=== PATIENT | female | born 1955 | race Caucasian/White ===

== ENCOUNTER 2018-06-16 07:46 | Outpatient (CLI) | payer OTHER ==
--- NOTE | 2018-06-28 12:22 | Mammography Report ---
Reason: SCREENING MAMMO Procedure Date: 06/16/2018 Accession Number: [id number] / [id number] Procedure: EDWARD - Screening Mammo w/Slonae CPT Code: FULL RESULT: EXAM: Screening Mammo w/Sloane DATE: 06/16/2018 8:16 AM CLINICAL HISTORY: Routine screening TECHNIQUE: Bilateral CC and MLO views were obtained. COMPARISON: None available FINDINGS: There are scattered fibroglandular densities. 3 nodules are identified: 1. Left breast 5 mm 3:00 position 4 to 5 cm from the nipple, sloane MLO 9, CC 8. 2. Left breast 1.5 cm 9:00 position 2 to 3 cm from the nipple, sloane MLO 37, CC 40 3. Right breast 7 mm 6:00 position 2 cm from the nipple, sloane MLO 13, CC 15. No other suspicious masses, clustered microcalcifications, or regions of architectural distortion are identified. IMPRESSION: 3 nodules are identified, 2 in the left breast and one in the right breast. Further evaluation by ultrasound is suggested. RECOMMENDATION: Bilateral breast ultrasound. BIRADS CATEGORY 0: Needs additional evaluation COMMENT: If prior films become available for comparison the need for additional imaging may be obviated. STANDARD QUALIFYING STATEMENTS: 1. This examination was not reviewed with the aid of Computer-Aided Detection (CAD). 2. A negative or benign imaging report should not delay biopsy if clinically suspicious findings are present. Consider surgical consultation if warrented. More than 5% of cancers are not identified by imaging. 3. Dense breasts may obscure an underlying neoplasm. 4. This examination was reviewed with the aid of 3D breast imaging (tomosynthesis).
== END 2018-06-16 07:47 | disposition home or self-care (01) ==
LOC: DI 07:46
DX: Z12.31 Encounter for screening mammogram for malignant neoplasm of breast (principal); R92.8 Other abnormal and inconclusive findings on diagnostic imaging of breast
CPT/HCPCS: 77063; 77067

== ENCOUNTER 2018-07-12 09:56 | Outpatient (CLI) | payer OTHER ==
--- NOTE | 2018-07-12 16:30 | Ultrasound Report ---
Reason: ABN MAMMO - BILAT SPEC VIEW US Procedure Date: 07/12/2018 Accession Number: [id number] / [id number] Procedure: US - Breast Unilateral Limited CPT Code: FULL RESULT: EXAM: Breast Unilateral Limited, Breast Unilateral Limited DATE: 07/12/2018 11:25 AM CLINICAL HISTORY: ABN MAMMO - BILAT SPEC VIEW US COMPARISON: None. TECHNIQUE: Targeted ultrasound was performed of the right breast in the area of clinical concern at 6-7 o'clock o'clock and 2 cm distance from the nipple. Targeted ultrasound was performed of the left breast in two areas of concern at 3:00 approximately 4-5 cm from the nipple and at 9:00 2-3 cm from the nipple. Color Doppler was employed as appropriate. FINDINGS: A well-circumscribed wider than tall hypoechoic nodule is identified in the right breast at 6:00 2 cm from the nipple, probably benign finding. In the left breast at 10:00 3 cm from the nipple is a angulated appearing wider than tall mass which measures 0.9 x 0.4 cm and demonstrates posterior shadowing, probably benign. The left breast at 3:00, 4 cm from the nipple is a 2.5 mm simple cyst with increased through transmission, benign finding. No suspicious findings are made in the 3:00 region of the left breast. IMPRESSION: Probable benign findings in the right and left breast. RECOMMENDATION: Recommend diagnostic right breast ultrasound of the 6:00 finding 2 cm from the nipple in 6 months. Recommend diagnostic left breast ultrasound of the 10:00 finding 3 cm from the nipple in 2 months. BIRADS CATEGORY 3 RADIA
== END 2018-07-12 09:57 | disposition home or self-care (01) ==
LOC: DI 09:56
PROVIDERS: ATTEND Nurse Practitioner
DX: R92.8 Other abnormal and inconclusive findings on diagnostic imaging of breast (principal); N60.02 Solitary cyst of left breast
CPT/HCPCS: 76642

== ENCOUNTER 2018-11-05 13:11 | Outpatient (CLI) | payer OTHER ==
--- NOTE | 2018-11-05 15:57 | Ultrasound Report ---
Reason: ABNORMAL MAMMOGRAM Procedure Date: 11/05/2018 Accession Number: [id number] / [id number] Procedure: US - Breast Unilateral Limited CPT Code: FULL RESULT: EXAM: Breast Unilateral Limited DATE: 11/05/2018 2:13 PM CLINICAL HISTORY: Diagnostic ultrasound as follow-up of prior abnormalities on mammogram and ultrasound. COMPARISON: None. TECHNIQUE: Targeted ultrasound was performed of the left breast in the area of clinical concern at 10 o'clock and 3 distance from the nipple. Color Doppler was employed as appropriate. FINDINGS: The previously identified finding is redemonstrated on different ultrasound equipment. Today's appearance favors normal breast parenchyma, probably benign. IMPRESSION: Probable benign findings RECOMMENDATION: Recommend diagnostic left breast ultrasound in 12 months to establish two-year stability. Additionally, previously recommended right breast diagnostic ultrasound at the 6 month interval. BIRADS CATEGORY 3 RADIA
== END 2018-11-05 13:12 | disposition home or self-care (01) ==
LOC: DI 13:11
PROVIDERS: ATTEND Nurse Practitioner
DX: R92.8 Other abnormal and inconclusive findings on diagnostic imaging of breast (principal)
CPT/HCPCS: 76642

== ENCOUNTER 2019-01-24 10:30 | Outpatient (CLI) | payer OTHER ==
--- NOTE | 2019-01-24 13:00 | Ultrasound Report ---
Reason: ABNORMAL MAMMOGRAM, RIGHT BREAST 6 MO FU Procedure Date: 01/24/2019 Accession Number: [id number] / [id number] Procedure: US - Breast Unilateral Limited CPT Code: FULL RESULT: EXAM: Breast Unilateral Limited Ultrasound DATE: 01/24/2019 11:42 AM CLINICAL HISTORY: ABNORMAL MAMMOGRAM, RIGHT BREAST 6 MO FU ultrasound COMPARISON: Right breast ultrasound 07/12/2018, mammogram 06/16/2018 TECHNIQUE: Targeted ultrasound was performed of the right breast in the area of clinical concern at 6 o'clock and 2 cm distance from the nipple. Color Doppler was employed as appropriate. FINDINGS: The 4 x 2 x 3 mm hypoechoic nodule seen on the 07/12/2018 ultrasound in the 6:00 position right breast 2 cm from the nipple is not appreciated on the current ultrasound. A few retroareolar prominent ducts are noted. No cystic or solid mass is seen. IMPRESSION: Benign findings RECOMMENDATION: Routine bilateral screening mammography in 6 months at the time of left breast ultrasound per prior recommendation. BIRADS CATEGORY 2: Benign findings RADIA
== END 2019-01-24 10:31 | disposition home or self-care (01) ==
LOC: DI 10:30
PROVIDERS: ATTEND Nurse Practitioner
DX: R92.8 Other abnormal and inconclusive findings on diagnostic imaging of breast (principal)
CPT/HCPCS: 76642

== ENCOUNTER 2019-05-17 08:59 | Outpatient (CLI) | payer OTHER ==
[2019-05-17 11:46] LABS: BASOPHILS # (AUTO) 0.1 10^3/uL (0.0-0.1); BASOPHILS % (AUTO) 0.6 %; EOSINOPHILS # (AUTO) 0.1 10^3/uL (0.0-0.7); EOSINOPHILS % (AUTO) 0.5 %; HGB - HEMOGLOBIN 13.4 g/dL (12.0-16.0); LYMPHOCYTES # (AUTO) 4.6 10^3/uL (1.5-3.5); LYMPHOCYTES % (AUTO) 39.5 %; MEAN CORPUSCULAR HEMOGLOBIN 30.7 pg (27.0-31.0); MEAN CORPUSCULAR HGB CONC 32.8 g/dL (32.0-36.0); MEAN CORPUSCULAR VOLUME 93.6 fL (81.0-99.0); MEAN PLATELET VOLUME 9.9 fL (7.9-10.8); MONOCYTES # (AUTO) 0.8 10^3/uL (0.0-1.0); MONOCYTES % (AUTO) 6.6 %; NEUTROPHILS # (AUTO) 6.1 10^3/uL (1.5-6.6); NEUTROPHILS % (AUTO) 52.4 %; PLT - PLATELET COUNT 411 10^3/uL (130-450); RED BLOOD COUNT 4.36 10^6/uL (4.20-5.40); RED CELL DISTRIBUTION WIDTH 14.4 % (12.0-15.0); WHITE BLOOD COUNT 11.7 x10^3/uL (4.8-10.8)
[2019-05-17 12:02] LABS: ALBUMIN 3.6 g/dL (3.2-5.5); ALBUMIN/GLOBULIN RATIO 1.1 (1.0-2.2); ALKALINE PHOSPHATASE 70 IU/L (42-121); ALT ALANINE AMINOTRANSFERASE 24 IU/L (10-60); AST ASPARTATE AMINOTRANSFERASE 20 IU/L (10-42); BILIRUBIN,TOTAL 0.7 mg/dL (0.2-1.0); BUN - BLOOD UREA NITROGEN 17 mg/dL (6-20); CALCIUM 9.1 mg/dL (8.5-10.3); CARBON DIOXIDE - CO2 30 mmol/L (21-32); CHLORIDE 101 mmol/L (101-111); CHOL/HDL RATIO 2.7 (<4.4); CHOLESTEROL 187 mg/dL; CREATININE 0.8 mg/dL (0.4-1.0); GFR - MDRD 72 (>89); GLUCOSE 86 mg/dL (70-100); HDL CHOLESTEROL 70 mg/dL; LDL CHOLESTEROL,CALCULATED 100 mg/dL; LDL/HDL RATIO 1.4 (<4.4); SODIUM 138 mmol/L (135-145); TOTAL PROTEIN 6.8 g/dL (6.7-8.2); VLDL CHOLESTEROL 17 mg/dL
== END 2019-05-17 23:59 | disposition home or self-care (01) ==
LOC: LAB.WCP 08:59
PROVIDERS: ATTEND Nurse Practitioner
DX: Z00.00 Encounter for general adult medical examination without abnormal findings (principal); I10 Essential (primary) hypertension; J45.909 Unspecified asthma, uncomplicated
CPT/HCPCS: 36415; 80053; 80061; 83721; 85025

== ENCOUNTER 2019-08-08 09:17 | Outpatient (CLI) | payer BC ==
--- NOTE | 2019-08-09 16:57 | Mammography Report ---
Reason: ROUTINE MAMMO Procedure Date: 08/08/2019 Accession Number: [id number] / [id number] Procedure: EDWARD - Screening Mammo w/Erick CPT Code: Final Report FULL RESULT: EXAM: Screening Mammo w/Erick DATE: 08/08/2019 9:43 AM CLINICAL HISTORY: Sister With breast cancer. Routine screening. TECHNIQUE: (B) - Bilateral CC and MLO views were obtained. COMPARISON: 06/16/2018 mammogram, bilateral breast ultrasound 07/12/2018, left breast ultrasound 11/05/2018 and right breast ultrasound 01/24/2019 PARENCHYMAL PATTERN: (A) - The breasts demonstrate scattered fibroglandular densities bilaterally. FINDINGS: No significant new findings. There are no suspicious calcifications, skin thickening, or areas of distortion. No masses on the right. On the left a nodular density in the 10:00 position persists, similar to the prior mammogram. Suggest follow-up left breast ultrasound per prior recommendation. IMPRESSION: Incomplete examination. BI-RADS category 0. Needs left breast ultrasound. Negative right breast. RECOMMENDATION: (ADDUS) - Targeted ultrasound recommended. Left breast BI-RADS CATEGORY: (0) - Incomplete Examination - need additional evaluation. STANDARD QUALIFYING STATEMENTS: 1. This examination was not reviewed with the aid of Computer-Aided Detection (CAD). 2. A negative or benign imaging report should not preclude biopsy if clinically suspicious findings are present. 3. Dense breasts may obscure an underlying neoplasm. 4. This examination was reviewed with the aid of 3D breast imaging (tomosynthesis).
== END 2019-08-08 09:18 | disposition home or self-care (01) ==
LOC: DI 09:17
PROVIDERS: ATTEND Nurse Practitioner
DX: Z12.31 Encounter for screening mammogram for malignant neoplasm of breast (principal); R92.8 Other abnormal and inconclusive findings on diagnostic imaging of breast; Z80.3 Family history of malignant neoplasm of breast
CPT/HCPCS: 77063; 77067

== ENCOUNTER 2019-08-10 09:31 | Outpatient (CLI) | payer BC ==
--- NOTE | 2019-08-10 12:18 | Ultrasound Report ---
Reason: ABD US - 6 MO FOLLOW UP Procedure Date: 08/10/2019 Accession Number: [id number] / [id number] Procedure: US - Breast Unilateral Limited CPT Code: Final Report FULL RESULT: EXAM: Breast Unilateral Limited LEFT DATE: 08/10/2019 11:21 AM CLINICAL HISTORY: Follow-up abnormal ultrasound and mammogram. Strong family history of breast cancer. COMPARISON: Breast ultrasound left 07/12/2018, 11/05/2018, mammography 08/08/2019 TECHNIQUE: Targeted ultrasound was performed of the left breast in the area of clinical concern at 10 o'clock and 3 cm distance from the nipple. Color Doppler was employed as appropriate. FINDINGS: Corresponding to the mammographic finding and prior ultrasounds is an 8 x 5 x 8 mm triangular-shaped somewhat ill-defined area with echogenicity similar to adjacent breast tissue. Vascular flow is now demonstrated within this area, new in contrast to prior studies. No other cystic or solid mass or fluid collection is seen. I discussed the findings on mammography and ultrasound with the patient. Given her strong family history of breast cancer and her difficulty in scheduling appointments we agreed that ultrasound-guided core biopsy at this time was preferable to six-month follow-up ultrasound. IMPRESSION: Suspicious abnormality left breast. RECOMMENDATION: Ultrasound-guided core left breast biopsy. BIRADS CATEGORY 4 Suspicious RADIA
== END 2019-08-10 09:32 | disposition home or self-care (01) ==
LOC: DI 09:31
PROVIDERS: ATTEND Nurse Practitioner
DX: R92.8 Other abnormal and inconclusive findings on diagnostic imaging of breast (principal); Z80.3 Family history of malignant neoplasm of breast
CPT/HCPCS: 76642

== ENCOUNTER 2019-11-09 09:21 | Outpatient (CLI) | payer MEDICARE, OTHER ==
[2019-11-09] MEDS ORDERED: BUFFERED LIDOCAINE 10 ML SYRINGE ONE (09:40)
[2019-11-09] MEDS ORDERED: BUFFERED LIDOCAINE 10 ML SYRINGE IU ONE (15:30)
--- NOTE | 2019-11-10 11:06 | Mammography Report ---
UNILATERAL LEFT DIGITAL DIAGNOSTIC MAMMOGRAM 3D/2D: 11/09/2019 CLINICAL: Post left breast ultrasound biopsy, clip placement imaging. Comparison is made to exams dated: 08/08/2019 mammogram and 06/16/2018 mammogram - [facility]. The tissue of left breast is predominantly fatty, and there is a small post-biopsy marker at the 10:00 position left breast. IMPRESSION: POST PROCEDURE MAMMOGRAM FOR MARKER PLACEMENT Post-biopsy marker in expected position after US guided biopsy of the left breast small 10:00 positio n soft tissue lesion. Results pending. NOTE: For mammograms, a report in lay terms will be sent to the patient. Approximately 15% of breast malignancies will not be visualized mammographically. In the management of a palpable breast mass, a negative mammogram must not discourage biopsy of a clinically suspicious lesion. Electronically Signed By: Wan Rivas M.D. sdh/:11/09/2019 16:22:56 ACR BI-RADS Category Post-procedure mammogram for marker placement PARENCHYMAL PATTERN: (F) - The breast(s) demonstrate(s) diffuse fatty replacement. BI-RADS CATEGORY: () - Unspecified - other recall n/a LATERALITY: (B)
--- NOTE | 2019-11-15 19:11 | Ultrasound Report ---
ULTRASOUND GUIDED BIOPSY LEFT BREAST WITH MARKING DEVICE INSERTED AND POST DIGITAL MAMMOGRAPHIC AND U LTRASOUND IMAGIN11/09/2019 CLINICAL: Patient returns for additional imaging over a suspected mass in the left breast. PATIENT CONSENT: Risks (minor bleeding, infection, vasovagal reaction and repeat procedure), benefits and alternatives were explained to the patient and written informed consent was obtained. Correlation is made to exams dated: 08/10/2019 ultrasound, 08/08/2019 mammogram, 01/24/2019 ultrasound, 10/16/2018 ultrasound, 07/12/2018 ultrasound, and 07/12/2018 ultrasound - [facility]. An ultrasound guided biopsy using real-time ultrasound was performed for the concerning 6 cm x 5 cm x 5 cm circumscribed oval solid mass located in the left breast at 10 o'clock anterior depth. This wa s described on the previous mammography and ultrasound reports. The skin was prepped in the usual ma nner. Local anesthetic was administered to the access site. A skin jimmy was made in the breast. Th e abnormality was approached from the lateral aspect. A 14 gauge biopsy needle was placed adjacent t o the abnormality through an introducer device under ultrasound guidance. Once the needle was docume nted to be in the correct location, three specimens were obtained using a BARD biopsy device. A clip was inserted into the biopsy cavity. A skin closure strip and a sterile dressing were applied to th e access site. Post procedure digital mammographic and ultrasound imaging demonstrates the location device at the targeted area and partial removal of the abnormality. The specimens were sent to the l aboratory for pathological analysis. IMPRESSION: ULTRASOUND GUIDED BIOPSY BENIGN Ultrasound guided biopsy of the 6 cm x 5 cm x 5 cm solid mass in the left breast at 10 o'clock anteri or depth was successful. Pathology indicates benign fibrosis and fibrofatty breast tissue. Patholog y results are concordant with imaging findings. Return to annual mammogram screening schedule is recommended. This exam was interpreted at Station ID: [id number]. Wan Campos M.D. [facility],yanick/:11/11/2019 12:58:03 BI-RADS CATEGORY: () - RECOMMENDATION: (ANNUAL) - Recommend routine annual screening mammography. [id number] return to screening LATERALITY: (B)
== END 2019-11-09 09:22 | disposition home or self-care (01) ==
LOC: DI 09:21
PROVIDERS: ATTEND Nurse Practitioner
DX: N60.32 Fibrosclerosis of left breast (principal)
CPT/HCPCS: 19083; 88305

== ENCOUNTER 2020-06-20 08:00 | Outpatient (CLI) | payer MEDICARE, OTHER ==
[2020-06-20 13:14] LABS: BASOPHILS # (AUTO) 0.1 10^3/uL (0.0-0.1); EOSINOPHILS # (AUTO) 0.1 10^3/uL (0.0-0.7); EOSINOPHILS % (AUTO) 1.1 %; HGB - HEMOGLOBIN 13.3 g/dL (12.0-16.0); LYMPHOCYTES # (AUTO) 2.3 10^3/uL (1.5-3.5); LYMPHOCYTES % (AUTO) 31.7 %; MEAN CORPUSCULAR HEMOGLOBIN 31.8 pg (27.0-31.0); MEAN CORPUSCULAR HGB CONC 33.1 g/dL (32.0-36.0); MEAN CORPUSCULAR VOLUME 96.2 fL (81.0-99.0); MEAN PLATELET VOLUME 10.2 fL (7.9-10.8); MONOCYTES # (AUTO) 0.6 10^3/uL (0.0-1.0); NEUTROPHILS # (AUTO) 4.1 10^3/uL (1.5-6.6); NEUTROPHILS % (AUTO) 57.9 %; PLT - PLATELET COUNT 352 10^3/uL (130-450); RED BLOOD COUNT 4.18 10^6/uL (4.20-5.40); RED CELL DISTRIBUTION WIDTH 12.8 % (12.0-15.0); WHITE BLOOD COUNT 7.1 x10^3/uL (4.8-10.8)
[2020-06-20 14:06] LABS: ALBUMIN 3.9 g/dL (3.2-5.5); ALBUMIN/GLOBULIN RATIO 1.3 (1.0-2.2); ALKALINE PHOSPHATASE 85 IU/L (42-121); ALT ALANINE AMINOTRANSFERASE 17 IU/L (10-60); AST ASPARTATE AMINOTRANSFERASE 20 IU/L (10-42); BILIRUBIN,TOTAL 0.5 mg/dL (0.2-1.0); BUN - BLOOD UREA NITROGEN 11 mg/dL (6-20); CALCIUM 10.1 mg/dL (8.5-10.3); CARBON DIOXIDE - CO2 28 mmol/L (21-32); CHLORIDE 100 mmol/L (101-111); CHOL/HDL RATIO 2.7 (<4.4); CHOLESTEROL 189 mg/dL; CREATININE 0.6 mg/dL (0.4-1.0); GLUCOSE 81 mg/dL (70-100); HDL CHOLESTEROL 71 mg/dL; LDL CHOLESTEROL,CALCULATED 110 mg/dL; LDL/HDL RATIO 1.5 (<4.4); TOTAL PROTEIN 6.9 g/dL (6.7-8.2); VLDL CHOLESTEROL 8 mg/dL
== END 2020-06-20 23:59 | disposition home or self-care (01) ==
LOC: LAB.WCP 08:00
PROVIDERS: ATTEND Nurse Practitioner
DX: Z00.00 Encounter for general adult medical examination without abnormal findings (principal); I10 Essential (primary) hypertension; J45.909 Unspecified asthma, uncomplicated; Z79.899 Other long term (current) drug therapy
CPT/HCPCS: 36415; 80053; 80061; 83721; 84443; 85025

== ENCOUNTER 2020-08-03 12:02 | Day surgery (SDC) | payer MEDICARE, OTHER ==
[2020-08-03] MEDS ORDERED: LACTATED RINGERS 1,000 ML IV ONE (12:37)
[2020-08-03] MEDS ORDERED: ONDANSETRON 4 MG/2 ML VIAL IVP PRN (12:44)
[2020-08-03] MEDS ORDERED: HYDROmorphone 0.5 MG/0.5 ML SYRINGE IVP PRN (12:44)
[2020-08-03] MEDS ORDERED: ATROPINE ABBOJECT 1 MG/10 ML SYRINGE IVP PRN (12:44)
[2020-08-03] MEDS ORDERED: NALOXONE 0.4 MG/ML VIAL IVP PRN (12:44)
[2020-08-03] MEDS ORDERED: ePHEDrine 50 MG/ML VIAL IVP PRN (12:44)
[2020-08-03] MEDS ORDERED: MORPHINE 2 MG/ML CARPUJECT IVP PRN (12:44)
[2020-08-03] MEDS ORDERED: METOCLOPRAMIDE 10 MG/2 ML VIAL IVP PRN (12:44)
[2020-08-03] MEDS ORDERED: fentaNYL 100 MCG/2 ML VIAL IVP PRN (12:44)
--- NOTE | 2020-08-03 12:44 | ANESTHESIA ---
Pre-Anesthesia VS, & Labs - Diagnosis hx of polyps - Procedure colonoscopy Vital Signs: Temp Pulse Resp BP Pulse Ox 36.6 C 73 16 145/95 H 100 08/03/20 12:17 08/03/20 12:17 08/03/20 12:17 08/03/20 12:17 08/03/20 12:17 Height: 5 ft 4 in Weight (kg): 72.5 kg Body Mass Index: 27.4 BMI Classification: Overweight - NPO >8 hours - Is Patient ?: No Home Medications and Allergies Home Medications: Ambulatory Orders Albuterol Sulf [Ventolin Hfa Inhaler] 1 - 2 puffs INH Q4HR PRN 08/02/20 Hydrochlorothiazide 25 mg PO DAILY 08/02/20 Montelukast [Singulair] 10 mg PO QPM 08/02/20 Potassium Chloride 10 meq PO DAILY 08/02/20 Albuterol Sulf [Ventolin Hfa Inhaler] 1 - 2 puffs INH Q4HR PRN 08/02/20 Hydrochlorothiazide 25 mg PO DAILY 08/02/20 Montelukast [Singulair] 10 mg PO QPM 08/02/20 Potassium Chloride 10 meq PO DAILY 08/02/20 Allergies/Adverse Reactions: Allergies Allergy/AdvReac Type Severity Reaction Status Date / Time No Known Drug Allergies Allergy Verified 08/02/20 14:08 Anes History & Medical History - Anesthetic History Anesthesia Complications: reports: No previous complications Family history of Anesthesia Complications: Denies Family history of Malignant Hyperthermia: Denies - Medical History Cardiovascular: reports: Hypertension Pulmonary: reports: Asthma, Sleep apnea, CPAP use Gastrointestinal: reports: None Urinary: reports: None Musculoskeletal: reports: None Endocrine/Autoimmune: reports: None Skin: reports: None History of Cancer?: No - Surgical History Orthopedic: reports: Rotator cuff repair Exam General: Alert, Oriented x3, Cooperative Dental: WNL Mouth Openin Fingerbreadth Neck Mobility: Normal Mallampati classification: I Thyromental Distance: 4-6 cm Respiratory: Lungs clear Cardiovascular: Regular rate Abdomen: Normal bowel sounds Extremities: No clubbing Neurological: Normal gait Mental/Cognitive Status: Alert/Oriented X3 Cognitive Status: Within normal limits Plan Anesthesia Type: Total IV Consent for Procedure(s) Verified and Reviewed: Yes Code Status: Attempt Resuscitation ASA classification: 2-Mild systemic disease Is this case an emergency?: No
[2020-08-03] MEDS ORDERED: LIDOCAINE-MPF 2% 5 ML VIAL ONE (12:58)
[2020-08-03] MEDS ORDERED: PROPOFOL 200 MG/20 ML VIAL IVP ONE (12:58)
[2020-08-03] MEDS ORDERED: LACTATED RINGERS 1,000 ML IV SCH (13:00)
[2020-08-03] MEDS ORDERED: LACTATED RINGERS 75 ML IV ONE (13:24)
[2020-08-03 13:41] VITALS: BP 117/65
--- NOTE | 2020-08-03 18:08 | ANESTHESIA POST OP EVALUATION ---
Anesthesia Post Eval - Post Anesthesia Eval Vitals: Last Vital Signs Temp 36.2 C L 08/03/20 13:40 Pulse 69 08/03/20 13:40 Resp 16 08/03/20 13:40 BP 117/65 08/03/20 13:40 Pulse Ox 100 08/03/20 13:40 CV Function Including HR & BP: positive: Stable Pain Control: positive: Satisfactory Nausea & Vomiting: positive: Negative Mental Status: positive: Baseline Respiratory Status: Airway Patent Hydration Status: Satisfactory Anesthesia Complications: positive: None
== END 2020-08-03 12:03 | disposition home or self-care (01) ==
LOC: SDS 12:02
PROVIDERS: ATTEND Surgery
PROC: 0DBN8ZZ Excision of Sigmoid Colon, Via Natural or Artificial Opening Endoscopic (ICD-10-PCS; 2020-08-03)
PROC: 0DBP8ZZ Excision of Rectum, Via Natural or Artificial Opening Endoscopic (ICD-10-PCS; principal; 2020-08-03 13:15)
DX: Z12.11 Encounter for screening for malignant neoplasm of colon (principal); K63.5 Polyp of colon; K62.1 Rectal polyp; G47.33 Obstructive sleep apnea (adult) (pediatric); Z80.0 Family history of malignant neoplasm of digestive organs; I10 Essential (primary) hypertension; E66.3 Overweight; Z68.27 Body mass index [BMI] 27.0-27.9, adult; J45.909 Unspecified asthma, uncomplicated
CPT/HCPCS: 45380; J7120

== ENCOUNTER 2020-08-07 12:55 | Outpatient (CLI) | payer MEDICARE, OTHER ==
--- NOTE | 2020-08-07 16:20 | DEXA Report ---
PROCEDURE: Dexa Spine and/or Hip INDICATIONS: POST MENOPAUSAL TECHNIQUE: Dual energy x-ray absorptiometry (DXA) was performed on a [employer] System. Regions measur ed are the AP Spine, femoral neck, and if needed forearm. COMPARISON: None. FINDINGS: Lumbar Spine: Bone Mineral Density 1.267 g/cm/cm,T score 0.7, normal Left Hip: Bone Mineral Density 0.935 g/cm/cm,T score -0.6, normal Left Femoral Neck: Bone Mineral Density 0.849 g/cm/cm, T score -1.4, mild osteopenia (T score greater or equal to -1.0: NORMAL) (T score from -1.1 to -2.4: OSTEOPENIA) (T score less than or equal to -2.5 to: OSTEOPOROSIS) Impression: Mild osteopenia within the left femoral neck. Patients with diagnosis of osteoporosis or osteopenia should have regular bone mineral density assess ment. For those eligible for Medicare, routine testing is allowed once every 2 years. Testing frequ ency can be increased for patients who have rapidly progressing disease or for those who are receivin g medical therapy to restore bone mass. Reviewed by: Zeny Leos MD on 08/07/2020 4:19 PM PDT Approved by: Zeny Leos MD on 08/07/2020 4:19 PM PDT Station ID: [id number]
== END 2020-08-07 12:56 | disposition home or self-care (01) ==
LOC: DI 12:55
PROVIDERS: ATTEND Nurse Practitioner
DX: M85.88 Other specified disorders of bone density and structure, other site (principal)

== ENCOUNTER 2020-08-07 12:55 | Outpatient (CLI) | payer MEDICARE, OTHER ==
--- NOTE | 2020-08-08 13:39 | Mammography Report ---
BILATERAL DIGITAL SCREENING MAMMOGRAM 3D/2D: 08/07/2020 CLINICAL: Routine screening. Comparison is made to exams dated: 11/09/2019 mammogram, 08/08/2019 mammogram, and 06/16/2018 mammogram - [facility]. There are scattered fibroglandular elements in both breasts. There is a biopsy clip in the left breast. No significant masses, calcifications, or other findings are seen in either breast. There has been no significant interval change. IMPRESSION: NEGATIVE There is no mammographic evidence of malignancy. A 1 year screening mammogram is recommended. This exam was interpreted at Station ID: [id number]. NOTE: For mammograms, a report in lay terms will be sent to the patient. Approximately 15% of breast malignancies will not be visualized mammographically. In the management of a palpable breast mass, a negative mammogram must not discourage biopsy of a clinically suspicious lesion. Electronically Signed By: Zion Harding M.D. ddp/penrad:08/07/2020 15:02:28 ACR BI-RADS Category 1: Negative 3341F PARENCHYMAL PATTERN: (A) - The breast(s) demonstrate(s) scattered fibroglandular densities. BI-RADS CATEGORY: (1) - 1 RECOMMENDATION: (ANNUAL) - Recommend routine annual screening mammography. [id number] 1 year screening LATERALITY: (B)
== END 2020-08-07 12:56 | disposition home or self-care (01) ==
LOC: DI 12:55
PROVIDERS: ATTEND Nurse Practitioner
DX: Z12.31 Encounter for screening mammogram for malignant neoplasm of breast (principal)

== ENCOUNTER 2020-08-20 07:00 | Outpatient (CLI) | payer MEDICARE, OTHER ==
[2020-08-20 18:41] LABS: HCT - HEMATOCRIT 37.3 % (37.0-47.0); HGB - HEMOGLOBIN 12.4 g/dL (12.0-16.0); MEAN CORPUSCULAR HEMOGLOBIN 31.5 pg (27.0-31.0); MEAN CORPUSCULAR HGB CONC 33.2 g/dL (32.0-36.0); MEAN CORPUSCULAR VOLUME 94.7 fL (81.0-99.0); RED BLOOD COUNT 3.94 10^6/uL (4.20-5.40); RED CELL DISTRIBUTION WIDTH 12.5 % (12.0-15.0); WHITE BLOOD COUNT 8.4 x10^3/uL (4.8-10.8)
[2020-08-20 19:07] LABS: CRP - C-REACTIVE PROTEIN 9.7 mg/dL (0-1.0); URIC ACID 2.8 mg/dL (2.6-7.2)
[2020-08-20 19:54] LABS: RHEUMATOID FACTOR NEGATIVE (Negative)
[2020-08-22 09:57] LABS: ANA SCREEN NEGATIVE (NEGATIVE)
[2020-08-22 16:05] LABS: DNA (DS) ANTIBODY 8 IU/mL
[2020-08-22 22:16] LABS: CYCLIC CITRULL PEPTIDE CCP IGG <16 UNITS
== END 2020-08-20 23:59 | disposition home or self-care (01) ==
LOC: LAB.N 07:00
PROVIDERS: ATTEND Family Medicine
DX: M25.50 Pain in unspecified joint (principal)
CPT/HCPCS: 36415; 84550; 85025; 85027; 85651; 86038; 86140; 86200; 86225; 86430

== ENCOUNTER 2020-09-14 11:37 | Outpatient (CLI) | payer MEDICARE, OTHER ==
--- NOTE | 2020-09-14 15:02 | XRAY Report ---
PROCEDURE: Wrist 3 View BILAT INDICATIONS: LATERAL EPICONDYLITIS, BILATERAL TECHNIQUE: 6 views of the wrist were acquired. COMPARISON: None. FINDINGS: Bones: No fractures or dislocations. No suspicious bony lesions. On the right, scattered degenerative spurring and sclerosis. Ulnar minus variance incidentally noted. On the left, Scattered degenerative spurring and subchondral sclerosis. There is ulnar minus variance . Soft tissues: No suspicious soft tissue calcifications. Incidental vascular calcifications noted. IMPRESSION: Bilateral degenerative sclerosis and spurring. Bilateral ulnar minus variance incidentally noted. Reviewed by: Christiano Gutiérrez MD on 09/14/2020 3:00 PM PDT Approved by: Christiano Gutiérrez MD on 09/14/2020 3:00 PM PDT Station ID: [id number]
== END 2020-09-14 11:38 | disposition home or self-care (01) ==
LOC: DI.N 11:37
PROVIDERS: ATTEND Internal Medicine
DX: M25.832 Other specified joint disorders, left wrist (principal); M25.831 Other specified joint disorders, right wrist; M77.8 Other enthesopathies, not elsewhere classified

== ENCOUNTER 2021-07-05 09:27 | Outpatient (CLI) | payer MEDICARE, OTHER ==
[2021-07-05 12:36] LABS: BASOPHILS # (AUTO) 0.1 10^3/uL (0.0-0.1); BASOPHILS % (AUTO) 1.1 %; EOSINOPHILS # (AUTO) 0.2 10^3/uL (0.0-0.7); EOSINOPHILS % (AUTO) 3.3 %; HCT - HEMATOCRIT 39.9 % (37.0-47.0); HGB - HEMOGLOBIN 13.2 g/dL (12.0-16.0); LYMPHOCYTES # (AUTO) 1.9 10^3/uL (1.5-3.5); LYMPHOCYTES % (AUTO) 28.9 %; MEAN CORPUSCULAR HGB CONC 33.1 g/dL (32.0-36.0); MEAN CORPUSCULAR VOLUME 96.6 fL (81.0-99.0); MONOCYTES # (AUTO) 0.5 10^3/uL (0.0-1.0); MONOCYTES % (AUTO) 8.4 %; NEUTROPHILS # (AUTO) 3.7 10^3/uL (1.5-6.6); NEUTROPHILS % (AUTO) 58.1 %; PLT - PLATELET COUNT 336 10^3/uL (130-450); RED BLOOD COUNT 4.13 10^6/uL (4.20-5.40); RED CELL DISTRIBUTION WIDTH 12.6 % (12.0-15.0); WHITE BLOOD COUNT 6.4 x10^3/uL (4.8-10.8)
[2021-07-05 13:29] LABS: ALBUMIN 3.8 g/dL (3.2-5.5); ALKALINE PHOSPHATASE 72 IU/L (42-121); ALT ALANINE AMINOTRANSFERASE 19 IU/L (10-60); AST ASPARTATE AMINOTRANSFERASE 21 IU/L (10-42); BILIRUBIN,TOTAL 0.6 mg/dL (0.2-1.0); BUN - BLOOD UREA NITROGEN 19 mg/dL (6-20); CALCIUM 9.5 mg/dL (8.5-10.3); CARBON DIOXIDE - CO2 29 mmol/L (21-32); CHLORIDE 101 mmol/L (101-111); CHOL/HDL RATIO 2.5 (<4.4); CHOLESTEROL 199 mg/dL; CREATININE 0.7 mg/dL (0.4-1.0); GFR - MDRD 84 (>89); GLUCOSE 91 mg/dL (70-100); HDL CHOLESTEROL 79 mg/dL; LDL CHOLESTEROL,CALCULATED 111 mg/dL; LDL/HDL RATIO 1.4 (<4.4); SODIUM 137 mmol/L (135-145); TOTAL PROTEIN 7.5 g/dL (6.7-8.2); TRIGLYCERIDES 47 mg/dL; VLDL CHOLESTEROL 9 mg/dL
[2021-07-05 13:33] LABS: THYROID STIMULATING HORMONE 2.24 uIU/mL (0.34-5.60)
== END 2021-07-05 09:28 | disposition home or self-care (01) ==
LOC: LAB.N 09:27
PROVIDERS: ATTEND Internal Medicine
DX: I10 Essential (primary) hypertension (principal); G47.33 Obstructive sleep apnea (adult) (pediatric)
CPT/HCPCS: 36415; 80053; 80061; 83721; 84443; 85025

== ENCOUNTER 2021-08-14 09:31 | Outpatient (CLI) | payer MEDICARE, OTHER ==
--- NOTE | 2021-08-14 15:35 | XRAY Report ---
PROCEDURE: Wrist 3 View RT INDICATIONS: CARPAL TUNNEL OF R WRIST TECHNIQUE: 4 views of the wrist were acquired. COMPARISON: None FINDINGS: Bones: No fractures or dislocations. No suspicious bony lesions. Mild radiocarpal narrowing. Soft tissues: No suspicious soft tissue calcifications. IMPRESSION: Mild radiocarpal narrowing is present. Reviewed by: Zeny Leos MD on 08/14/2021 3:33 PM PDT Approved by: Zeny Leos MD on 08/14/2021 3:33 PM PDT Station ID: [id number]
== END 2021-08-14 09:32 | disposition home or self-care (01) ==
LOC: DI.N 09:31
PROVIDERS: ATTEND Internal Medicine
DX: G56.01 Carpal tunnel syndrome, right upper limb (principal); I10 Essential (primary) hypertension
CPT/HCPCS: 36415; 80048

== ENCOUNTER 2021-12-16 15:38 | Outpatient (CLI) | payer MEDICARE, OTHER ==
--- NOTE | 2021-12-18 09:51 | Mammography Report ---
BILATERAL DIGITAL SCREENING MAMMOGRAM 3D/2D: 12/16/2021 CLINICAL: Family history of breast cancer. Routine screening. Comparison is made to exams dated: 08/07/2020 mammogram, 11/09/2019 ultrasound biopsy, 11/09/2019 mammo gram, 08/10/2019 ultrasound, 08/08/2019 mammogram, and 01/24/2019 ultrasound - [facility]. There are scattered fibroglandular elements in both breasts. There is a biopsy clip in the left breast. No significant masses, calcifications, or other findings are seen in either breast. There has been no significant interval change. IMPRESSION: NEGATIVE There is no mammographic evidence of malignancy. A 1 year screening mammogram is recommended. Based on the Tyrer Cuzick model (a risk assessment model) the patients lifetime risk is 9.2% and her 10 year risk is 4.9%. According to the ACR, ACS, and NCCN guidelines, an annual breast MRI exam indu g with mammogram is recommended if the patients lifetime risk is 20% or greater. This exam was interpreted at Station ID: [id number]. NOTE: For mammograms, a report in lay terms will be sent to the patient. Approximately 15% of breast malignancies will not be visualized mammographically. In the management of a palpable breast mass, a negative mammogram must not discourage biopsy of a clinically suspicious lesion. Electronically Signed By: Lauryn herndon/jenni:12/17/2021 12:15:21 ACR BI-RADS Category 1: Negative 3341F PARENCHYMAL PATTERN: (A) - The breast(s) demonstrate(s) scattered fibroglandular densities. BI-RADS CATEGORY: (1) - 1 RECOMMENDATION: (ANNUAL) - Recommend routine annual screening mammography. [id number] 1 year screening LATERALITY: (B)
== END 2021-12-16 15:39 | disposition home or self-care (01) ==
LOC: DI.N 15:38
PROVIDERS: ATTEND Internal Medicine
DX: Z12.31 Encounter for screening mammogram for malignant neoplasm of breast (principal); Z80.3 Family history of malignant neoplasm of breast

== ENCOUNTER 2022-08-30 09:26 | Outpatient (CLI) | payer MEDICARE, OTHER ==
[2022-08-30 18:58] LABS: BASOPHILS # (AUTO) 0.1 10^3/uL (0.0-0.1); EOSINOPHILS # (AUTO) 0.1 10^3/uL (0.0-0.7); EOSINOPHILS % (AUTO) 1.8 %; HCT - HEMATOCRIT 40.2 % (37.0-47.0); LYMPHOCYTES # (AUTO) 1.8 10^3/uL (1.5-3.5); LYMPHOCYTES % (AUTO) 29.4 %; MEAN CORPUSCULAR HEMOGLOBIN 31.3 pg (27.0-31.0); MEAN CORPUSCULAR HGB CONC 32.3 g/dL (32.0-36.0); MEAN CORPUSCULAR VOLUME 96.6 fL (81.0-99.0); MEAN PLATELET VOLUME 10.4 fL (7.9-10.8); MONOCYTES # (AUTO) 0.6 10^3/uL (0.0-1.0); MONOCYTES % (AUTO) 9.5 %; NEUTROPHILS # (AUTO) 3.6 10^3/uL (1.5-6.6); NEUTROPHILS % (AUTO) 58.1 %; PLT - PLATELET COUNT 340 10^3/uL (130-450); RED BLOOD COUNT 4.16 10^6/uL (4.20-5.40); RED CELL DISTRIBUTION WIDTH 13.1 % (12.0-15.0); WHITE BLOOD COUNT 6.2 x10^3/uL (4.8-10.8)
[2022-08-30 19:20] LABS: ALBUMIN 3.9 g/dL (3.2-5.5); ALBUMIN/GLOBULIN RATIO 1.2 (1.0-2.2); ALKALINE PHOSPHATASE 91 IU/L (42-121); ALT ALANINE AMINOTRANSFERASE 19 IU/L (10-60); AST ASPARTATE AMINOTRANSFERASE 22 IU/L (10-42); BILIRUBIN,TOTAL 0.6 mg/dL (0.2-1.0); BUN - BLOOD UREA NITROGEN 13 mg/dL (6-20); CALCIUM 9.4 mg/dL (8.5-10.3); CARBON DIOXIDE - CO2 29 mmol/L (21-32); CHLORIDE 104 mmol/L (101-111); CHOL/HDL RATIO 2.2 (<4.4); CHOLESTEROL 167 mg/dL; CREATININE 0.6 mg/dL (0.4-1.0); GFR - MDRD 100 (>89); GLUCOSE 90 mg/dL (70-100); HDL CHOLESTEROL 75 mg/dL; POTASSIUM 4.3 mmol/L (3.5-5.0); SODIUM 139 mmol/L (135-145); TOTAL PROTEIN 7.2 g/dL (6.7-8.2); TRIGLYCERIDES 35 mg/dL
[2022-08-30 19:31] LABS: THYROID STIMULATING HORMONE 1.4 uIU/mL (0.34-5.60)
== END 2022-08-30 09:27 | disposition home or self-care (01) ==
LOC: LAB.N 09:26
PROVIDERS: ATTEND Internal Medicine
DX: I10 Essential (primary) hypertension (principal); Z13.29 Encounter for screening for other suspected endocrine disorder
CPT/HCPCS: 36415; 80053; 80061; 83721; 84443; 85025

== ENCOUNTER 2022-12-18 08:14 | Outpatient (CLI) | payer MEDICARE, OTHER ==
--- NOTE | 2022-12-18 09:19 | Mammography Report ---
BILATERAL DIGITAL SCREENING MAMMOGRAM 3D/2D: 12/18/2022 CLINICAL: Family history of breast cancer. Routine screening. Comparison is made to exams dated: 12/16/2021 mammogram, 08/07/2020 mammogram, 11/09/2019 ultrasound bio psy, 11/09/2019 mammogram, 08/10/2019 ultrasound, and 08/08/2019 mammogram - [facility] There are scattered areas of fibroglandular density in both breasts (category b / 25%-50% glandular t issue). There is a biopsy clip in the left breast. No significant masses, calcifications, or other findings are seen in either breast. There has been no significant interval change. IMPRESSION: NEGATIVE There is no mammographic evidence of malignancy. A 1 year screening mammogram is recommended. Based on the Tyrer Cuzick model (a risk assessment model) the patients lifetime risk is 8.7% and her 10 year risk is 4.9%. According to the ACR, ACS, and NCCN guidelines, an annual breast MRI exam indu g with mammogram is recommended if the patients lifetime risk is 20% or greater. This exam was interpreted at Station ID: [id number]. NOTE: For mammograms, a report in lay terms will be sent to the patient. Approximately 15% of breast malignancies will not be visualized mammographically. In the management of a palpable breast mass, a negative mammogram must not discourage biopsy of a clinically suspicious lesion. Electronically Signed By: Tony stover/jenni:12/18/2022 09:00:04 letter sent: No_Letter ACR BI-RADS Category 1: Negative 3341F PARENCHYMAL PATTERN: (A) - The breast(s) demonstrate(s) scattered fibroglandular densities. BI-RADS CATEGORY: (1) - 1 Mammogram [id number] 1 year screening LATERALITY: (B)
== END 2022-12-18 08:15 | disposition home or self-care (01) ==
LOC: DI.N 08:14
DX: Z12.31 Encounter for screening mammogram for malignant neoplasm of breast (principal); Z80.3 Family history of malignant neoplasm of breast

== ENCOUNTER 2023-02-26 08:50 | Outpatient (CLI) | payer MEDICARE, OTHER | END 2023-02-26 08:51 | disposition home or self-care (01) | LOC: RT 08:50 | PROVIDERS: ATTEND Internal Medicine | DX: J45.20 Mild intermittent asthma, uncomplicated (principal) | CPT/HCPCS: 94010; 94729 ==

== ENCOUNTER 2023-12-02 07:54 | Outpatient (CLI) | payer MEDICARE, OTHER ==
[2023-12-02 12:23] LABS: BASOPHILS # (AUTO) 0.1 10^3/uL (0.0-0.1); BASOPHILS % (AUTO) 0.8 %; EOSINOPHILS # (AUTO) 0.2 10^3/uL (0.0-0.7); EOSINOPHILS % (AUTO) 2.1 %; HCT - HEMATOCRIT 39.8 % (37.0-47.0); HGB - HEMOGLOBIN 12.7 g/dL (12.0-16.0); LYMPHOCYTES # (AUTO) 2.1 10^3/uL (1.5-3.5); LYMPHOCYTES % (AUTO) 27.7 %; MEAN CORPUSCULAR HEMOGLOBIN 31.1 pg (27.0-31.0); MEAN CORPUSCULAR HGB CONC 31.9 g/dL (32.0-36.0); MEAN CORPUSCULAR VOLUME 97.5 fL (81.0-99.0); MEAN PLATELET VOLUME 10.2 fL (7.9-10.8); MONOCYTES # (AUTO) 0.6 10^3/uL (0.0-1.0); NEUTROPHILS # (AUTO) 4.7 10^3/uL (1.5-6.6); NEUTROPHILS % (AUTO) 61.1 %; PLT - PLATELET COUNT 367 10^3/uL (130-450); RED BLOOD COUNT 4.08 10^6/uL (4.20-5.40); RED CELL DISTRIBUTION WIDTH 13.8 % (12.0-15.0); WHITE BLOOD COUNT 7.7 x10^3/uL (4.8-10.8)
[2023-12-02 12:47] LABS: ALBUMIN 4.1 g/dL (3.2-5.5); ALBUMIN/GLOBULIN RATIO 1.2 (1.0-2.2); ALKALINE PHOSPHATASE 115 IU/L (42-121); ALT ALANINE AMINOTRANSFERASE 13 IU/L (10-60); AST ASPARTATE AMINOTRANSFERASE 17 IU/L (10-42); BILIRUBIN,TOTAL 0.6 mg/dL (0.2-1.0); BUN - BLOOD UREA NITROGEN 15 mg/dL (6-20); CALCIUM 9.6 mg/dL (8.5-10.3); CARBON DIOXIDE - CO2 28 mmol/L (21-32); CHLORIDE 105 mmol/L (101-111); CHOL/HDL RATIO 2.7 (<4.4); CHOLESTEROL 178 mg/dL; CREATININE 0.7 mg/dL (0.6-1.3); GFR - MDRD 83 (>89); GLUCOSE 95 mg/dL (74-104); HDL CHOLESTEROL 65 mg/dL; LDL CHOLESTEROL,CALCULATED 99 mg/dL; LDL/HDL RATIO 1.5 (<4.4); POTASSIUM 3.9 mmol/L (3.5-4.5); SODIUM 139 mmol/L (135-145); TOTAL PROTEIN 7.5 g/dL (6.4-8.9); TRIGLYCERIDES 72 mg/dL; VLDL CHOLESTEROL 14 mg/dL
[2023-12-02 12:56] LABS: THYROID STIMULATING HORMONE 2.25 uIU/mL (0.34-5.60)
== END 2023-12-02 07:55 | disposition home or self-care (01) ==
LOC: LAB.N 07:54
PROVIDERS: ATTEND Internal Medicine
DX: I10 Essential (primary) hypertension (principal); Z13.220 Encounter for screening for lipoid disorders; Z13.29 Encounter for screening for other suspected endocrine disorder
CPT/HCPCS: 36415; 80053; 80061; 83721; 84443; 85025

== ENCOUNTER 2023-12-29 08:39 | Outpatient (CLI) | payer MEDICARE, OTHER ==
--- NOTE | 2023-12-30 08:57 | Mammography Report ---
BILATERAL DIGITAL SCREENING MAMMOGRAM 3D/2D: 12/29/2023 CLINICAL: Routine screening. Family history of breast cancer. Comparison is made to exams dated: 12/18/2022 mammogram, 12/16/2021 mammogram, 08/07/2020 mammogram, 11/08 ultrasound biopsy, 11/09/2019 mammogram, and 08/10/2019 ultrasound - [facility] . There are scattered areas of fibroglandular density in both breasts (category b / 25%-50% glandular t issue). There is a biopsy clip in the left breast. No significant masses, calcifications, or other findings are seen in either breast. There has been no significant interval change. IMPRESSION: BENIGN There is no mammographic evidence of malignancy. A 1 year screening mammogram is recommended. Based on the Tyrer Cuzick model (a risk assessment model) the patient's lifetime risk is 8.3% and her 10 year risk is 4.9%. According to the ACR, ACS, and NCCN guidelines, an annual breast MRI exam indu g with mammogram is recommended if the patient's lifetime risk is 20% or greater. This exam was interpreted at Station ID: [id number]. NOTE: For mammograms, a report in lay terms will be sent to the patient. Approximately 15% of breast malignancies will not be visualized mammographically. In the management of a palpable breast mass, a negative mammogram must not discourage biopsy of a clinically suspicious lesion. Electronically Signed By: Raquel Thakur M.D., Ph.D. eb/jenni:12/29/2023 09:08:39 letter sent: No_Letter ACR BI-RADS Category 2: Benign Finding(s) 3342F PARENCHYMAL PATTERN: (A) - The breast(s) demonstrate(s) scattered fibroglandular densities. BI-RADS CATEGORY: (2) - 2 RECOMMENDATION: (ANNUAL) - Recommend routine annual screening mammography. [id number] 1 year screening LATERALITY: (B)
== END 2023-12-29 08:40 | disposition home or self-care (01) ==
LOC: DI.N 08:39
DX: Z12.31 Encounter for screening mammogram for malignant neoplasm of breast (principal); Z80.3 Family history of malignant neoplasm of breast; R92.323 Mammographic fibroglandular density, bilateral breasts